=== PATIENT | female | born 1945 | race Caucasian/White ===

== ENCOUNTER 2016-05-09 16:10 | Emergency (ER) | payer MEDICARE, OTHER ==
[2016-05-09] MEDS ORDERED: METOCLOPRAMIDE 5 MG/ML 2 ML VIAL IVP STA (16:33)
[2016-05-09] MEDS ORDERED: SODIUM CHLORIDE 0.9% 1,000 ML IV STA ×2 (16:33)
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
[2016-05-09 17:01] LABS: Basophils % (A) 0 %; CH 31.8; CHCM 34.5; Eosinophils # (A) 0.2 k/uL (0-0.7); Eosinophils % (A) 2 %; HCT 47.4 % (34.0-46.0); HDW 2.75; HGB 15.6 gm/dL (11.4-16.0); Luc # (Auto) 0.08; Luc % (Auto) 1; Lymphocytes # (A) 0.5 k/uL (1.0-4.8); Lymphocytes % (A) 4 %; MCH 30.4 pg (25.0-35.0); MCHC 32.9 g/dL (31.0-37.0); MCV 92.5 fL (80.0-100.0); Mean Platelet Volume 6.8; Monocytes # (A) 0.5 k/uL (0-1.0); Monocytes % (A) 4 %; Neutrophils # (A) 11.4 k/uL (1.3-7.7); Neutrophils % (A) 90 %; RBC 5.12 m/uL (3.80-5.40); RDW 12.3 % (11.5-15.5); WBC 12.7 k/uL (3.8-10.6); WBC (Perox) 13.05
[2016-05-09 17:11] LABS: ALT 22 U/L (9-52); AST 18 U/L (14-36); Alkaline Phosphatase 113 U/L (38-126); Amylase 61 U/L (30-110); Anion Gap 13 mmol/L; Blood Urea Nitrogen 22 mg/dL (7-17); Calcium 9.4 mg/dL (8.4-10.2); Carbon Dioxide 26 mmol/L (22-30); Chloride 105 mmol/L (98-107); Glucose 153 mg/dL (74-99); Non-African American GFR(MDRD) >60 (>60 ml/min/1.73 sqM); Potassium 4.1 mmol/L (3.5-5.1); Sodium 144 mmol/L (137-145); Total Protein 7.6 g/dL (6.3-8.2)
--- NOTE | 2016-05-09 17:12 | XR ---
EXAMINATION TYPE: XR abdomen 2V DATE OF EXAM: 05/09/2016 5:01 PM CLINICAL HISTORY: Abdominal pain TECHNIQUE: Single frontal view of chest is obtained. Supine and upright views of the abdomen are acq uired. COMPARISON: None. FINDINGS: Few air-fluid levels are noted within the right mid abdomen and right lower quadrant in no ndilated bowel. In the remainder of the exam there is a paucity of bowel gas, likely attributable to overlying copious soft tissues. Atheromatous calcifications are noted. No pneumoperitoneum, viscero megaly, or suspicious calcification is identified. The osseous structures are intact. Chest visualiz ation is suboptimal other than cardiomegaly. IMPRESSION: 1. New air-fluid levels in the right mid abdomen right lower quadrant within nondilated bowel. These likely relate to ileus without evidence of obstruction.
[2016-05-09 19:01] VITALS: BP 179/81; PULSE 101; RESP 15; TEMP 97.9
== END 2016-05-09 19:18 | disposition home or self-care (01) ==
LOC: EC 16:10
DX: K52.9 Noninfective gastroenteritis and colitis, unspecified (principal)
CPT/HCPCS: 99284 ×2; 96374 ×2; 36415; 80053; 82150; 83690; 85025; 87324; 74020; J2765

== ENCOUNTER 2023-02-08 11:33 | Observation (INO) | payer MEDICARE ==
[2023-02-08 11:41] LABS: Glucose,Whole Blood 242 mg/dL (70-110)
[2023-02-08] MEDS ORDERED: SODIUM CHLORIDE 0.9% 500 ML 500 ML IV STA (11:57)
[2023-02-08] MEDS ORDERED: ONDANSETRON 4 MG/2 ML VIAL IVP STA (11:57)
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
[2023-02-08 12:39] LABS: Basophils # (A) 0.1 k/uL (0-0.2); Basophils % (A) 0 %; Eosinophils # (A) 0.3 k/uL (0-0.7); Eosinophils % (A) 2 %; HCT 43.3 % (34.0-46.0); HGB 14.3 gm/dL (11.4-16.0); Lymphocytes # (A) 2.3 k/uL (1.0-4.8); Lymphocytes % (A) 18 %; MCH 31.3 pg (25.0-35.0); Mean Platelet Volume 9.3; Monocytes % (A) 7 %; Neutrophils # (A) 9.2 k/uL (1.3-7.7); Neutrophils % (A) 70 %; Platelet Count 284 k/uL (150-450); RBC 4.55 m/uL (3.80-5.40)
[2023-02-08 12:51] LABS: INR 1.3 (<1.2); Partial Thromboplastin Time 26.1 sec (22.0-30.0); Prothrombin Time 14.1 sec (10.0-12.5)
[2023-02-08 12:52] LABS: ALT 21 U/L (4-34); AST 24 U/L (14-36); African American GFR (CKD) 60 (>60 ml/min/1.73 sqM); Albumin 3.8 g/dL (3.5-5.0); Alkaline Phosphatase 157 U/L (38-126); Anion Gap 15 mmol/L; Blood Urea Nitrogen 20 mg/dL (7-17); Calcium 9.1 mg/dL (8.4-10.2); Carbon Dioxide 23 mmol/L (22-30); Chloride 100 mmol/L (98-107); Glucose 263 mg/dL (74-99); Lipase 88 U/L (23-300); Magnesium 1.3 mg/dL (1.6-2.3); Non-African American GFR(CKD) 52 (>60 ml/min/1.73 sqM); Potassium 3.3 mmol/L (3.5-5.1); Sodium 138 mmol/L (137-145); Total Bilirubin 0.7 mg/dL (0.2-1.3); Total Protein 6.8 g/dL (6.3-8.2)
--- NOTE | 2023-02-08 12:54 | XR ---
EXAMINATION TYPE: XR chest 2V DATE OF EXAM: 02/08/2023 COMPARISON: 04/16/2017 INDICATION: Chest pain TECHNIQUE: Frontal and lateral views of the chest are obtained. FINDINGS: The heart size is normal. The pulmonary vasculature is normal. The lungs are clear. IMPRESSION: 1. No acute pulmonary process.
[2023-02-08] MEDS: MAGNESIUM SULFATE-D5W PMX 1 GM in DEXTROSE/WATER 1 100ML.BAG IVPB SCH ×2 (14:16→15:20)
[2023-02-08] MEDS ORDERED: POTASSIUM CHLORIDE ER 20 MEQ TAB.ER PO STA (14:25)
[2023-02-08] MEDS ORDERED: SODIUM CHLORIDE 0.9% 1,000 ML IV ONE (15:05)
[2023-02-09 04:16] VITALS: RESP 16
[2023-02-09 08:53] VITALS: BP 152/77; PULSE 76; TEMP 97.8
[2023-02-09 12:26] LABS: Glucose,Whole Blood 213 mg/dL (70-110)
[2023-02-09] MEDS ORDERED: POTASSIUM CHLORIDE ER 20 MEQ TAB.ER PO SCH (21:00)
[2023-02-09] MEDS ORDERED: MAGNESIUM OXIDE 400 MG TAB PO SCH (21:00)
--- NOTE | 2023-02-13 06:11 | HP ---
HISTORY AND PHYSICAL CHIEF COMPLAINT: Syncope. HISTORY OF PRESENT ILLNESS: This is an admission for this 77-year-old obese white female who has a history of congestive heart failure. She also has atrial fibrillation. She has been doing fairly well with management of her heart failure. She is also diabetic and program has been increased lately to help control her sugars and protect her myocardium. She has been on Trulicity. Apparently, she was in [employer] and suddenly became lightheaded and passed out. She is fairly confident that it is due to the Trulicity. She has been on this for a month or 2 and losing a great deal of weight. She has not told me, but she apparently has frequent nausea and vomiting attributable to the Trulicity. She had no chest pain, focal neurologic signs or symptoms, etc. REVIEW OF SYSTEMS: At present time are all normal. Past medical history, family history, and personal and social histories are unremarkable otherwise. She does not drink or smoke. PHYSICAL EXAMINATION: VITAL SIGNS: Blood pressure 136/80 with a pulse 67 and regular, respirations 16. She is afebrile. GENERAL: She appeared to be well developed, well nourished, and in no acute distress. SKIN: Color is normal and skin is warm and dry. HEENT: Head, ears, eyes, nose, mouth and throat were normal. NECK: Veins not distended. Carotids are normal. CHEST: Clear. CARDIAC: Demonstrated atrial fibrillation with a slow response rate. ABDOMEN: Protuberant, soft, and nontender. There is no visceromegaly or masses. Bowel sounds present. EXTREMITIES: Normal. NEUROLOGICAL: She is intact. IMPRESSION: 1. Syncope secondary to hypoglycemia. 2. Type 2 diabetes mellitus. 3. Cardiomyopathy with congestive heart failure and atrial fibrillation. PLAN: 1. Bedrest. 2. IV fluids. 3. Monitor her neurologic status, blood sugars, and vital signs. MMODL / IJN: [id number] /
--- NOTE | 2023-02-15 03:56 | DS ---
DISCHARGE SUMMARY CHIEF COMPLAINT: Syncope. HISTORY OF PRESENT ILLNESS AND PHYSICAL EXAM: Details of this lady's history and physical can be found in the initial workup. LABORATORY STUDIES: While she was in the hospital, she had laboratory studies, details of which can be found in the laboratory section of her chart. COURSE IN THE HOSPITAL: After admission, she was placed on bedrest, started on intravenous fluids and she had no other issues including syncope, dizziness, arrhythmias, chest pain, etc. It was felt that this event was likely related to hypoglycemia. She is doing well and will be sent home on her usual activity, diet, medication, and not on the [facility]. She will be seen in several days. FINAL DIAGNOSES: 1. Syncope caused by hypoglycemia. 2. Type 2 diabetes mellitus. 3. Congestive heart failure. OPERATIONS: None. CONSULTATION: None. She is improved. RADHA / TOYA: [id number] /
== END 2023-02-09 14:22 | disposition home or self-care (01) ==
LOC: EC 11:33 → 6NMEDSUR 15:05
PROVIDERS: ADMIT Family Medicine; ATTEND Family Medicine
DX: E11.649 Type 2 diabetes mellitus with hypoglycemia without coma (principal); E87.6 Hypokalemia; E83.42 Hypomagnesemia; I42.9 Cardiomyopathy, unspecified; I48.91 Unspecified atrial fibrillation; R11.2 Nausea with vomiting, unspecified; T38.3X5A Adverse effect of insulin and oral hypoglycemic [antidiabetic] drugs, initial encounter; I11.0 Hypertensive heart disease with heart failure; I50.9 Heart failure, unspecified; E78.5 Hyperlipidemia, unspecified; J44.9 Chronic obstructive pulmonary disease, unspecified; I25.2 Old myocardial infarction; G89.29 Other chronic pain; M54.9 Dorsalgia, unspecified; F41.9 Anxiety disorder, unspecified; Z79.82 Long term (current) use of aspirin; Z79.02 Long term (current) use of antithrombotics/antiplatelets; Z79.899 Other long term (current) drug therapy; Z86.12 Personal history of poliomyelitis; Z87.828 Personal history of other (healed) physical injury and trauma; Z90.710 Acquired absence of both cervix and uterus; Z98.42 Cataract extraction status, left eye; Z98.41 Cataract extraction status, right eye; Z86.19 Personal history of other infectious and parasitic diseases; Z95.5 Presence of coronary angioplasty implant and graft; Z98.890 Other specified postprocedural states; Z83.79 Family history of other diseases of the digestive system; Z82.3 Family history of stroke
CPT/HCPCS: 96361; 96365; 96366; 96375; 99285; 36415; 93005; 80053; 83690; 83735; 84484; 85025; 85610; 85730; 71046; G0378 ×2; J2405; J3475

== ENCOUNTER 2023-02-17 12:25 | Observation (INO) | payer MEDICARE ==
[2023-02-17] MEDS ORDERED: SODIUM CHLORIDE 0.9% 500 ML 500 ML IV STA (12:38)
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
[2023-02-17 13:57] LABS: ALT 15 U/L (4-34); AST 28 U/L (14-36); African American GFR (CKD) >90 (>60 ml/min/1.73 sqM); Albumin 3.5 g/dL (3.5-5.0); Alkaline Phosphatase 152 U/L (38-126); Amylase 39 U/L (30-110); Anion Gap 10 mmol/L; Blood Urea Nitrogen 16 mg/dL (7-17); Calcium 8.7 mg/dL (8.4-10.2); Carbon Dioxide 29 mmol/L (22-30); Chloride 97 mmol/L (98-107); Glucose 206 mg/dL (74-99); Lipase 57 U/L (23-300); Magnesium 1.3 mg/dL (1.6-2.3); Non-African American GFR(CKD) 86 (>60 ml/min/1.73 sqM); Sodium 136 mmol/L (137-145); Total Bilirubin 0.9 mg/dL (0.2-1.3); Total Protein 6.5 g/dL (6.3-8.2)
[2023-02-17 13:58] LABS: Potassium 3.7 mmol/L (3.5-5.1)
[2023-02-17 14:05] LABS: Basophils # (A) 0.1 k/uL (0-0.2); Basophils % (A) 1 %; Eosinophils # (A) 0.2 k/uL (0-0.7); Eosinophils % (A) 2 %; HCT 43.9 % (34.0-46.0); HGB 14.8 gm/dL (11.4-16.0); Lymphocytes # (A) 1.7 k/uL (1.0-4.8); Lymphocytes % (A) 17 %; MCH 32.2 pg (25.0-35.0); MCHC 33.7 g/dL (31.0-37.0); MCV 95.7 fL (80.0-100.0); Mean Platelet Volume 9.1; Monocytes # (A) 0.8 k/uL (0-1.0); Monocytes % (A) 7 %; Neutrophils # (A) 7.6 k/uL (1.3-7.7); Neutrophils % (A) 72 %; Platelet Count 258 k/uL (150-450); RBC 4.59 m/uL (3.80-5.40); RDW 11.7 % (11.5-15.5); WBC 10.5 k/uL (3.8-10.6)
[2023-02-17] MEDS: MAGNESIUM SULFATE-D5W PMX 1 GM in DEXTROSE/WATER 1 100ML.BAG IVPB SCH ×2 (15:29→18:38)
[2023-02-17] MEDS ORDERED: SODIUM CHLORIDE 0.9% 1,000 ML IV ONE (17:33)
[2023-02-17 21:13] LABS: Glucose,Whole Blood 237 mg/dL (70-110)
[2023-02-18 06:00] LABS: Glucose,Whole Blood 241 mg/dL (70-110)
[2023-02-18 11:13] LABS: ALT 14 U/L (8-44); AST 15 U/L (13-35); Albumin 3.2 g/dL (3.8-4.9); Albumin/Globulin Ratio 1.28 Ratio (1.60-3.17); Alkaline Phosphatase 158 U/L (41-126); BUN/Creat Ratio 14.62 Ratio (12.00-20.00); Blood Urea Nitrogen 11.7 mg/dL (9.0-27.0); Calcium 8.8 mg/dL (8.7-10.3); Carbon Dioxide 28.1 mmol/L (21.6-31.8); Chloride 99 mmol/L (96-109); Globulin 2.5 g/dL (1.6-3.3); Glucose 249 mg/dL (70-110); Potassium 3.6 mmol/L (3.5-5.5); Sodium 137 mmol/L (135-145); Total Bilirubin 0.5 mg/dL (0.3-1.2); Total Protein 5.7 g/dL (6.2-8.2)
[2023-02-18 12:00] LABS: Glucose,Whole Blood 240 mg/dL (70-110)
[2023-02-18] MEDS ORDERED: DEXTROSE 50% SYRINGE 50 ML IVP PRN ×2 (12:27)
[2023-02-18] MEDS: INSULIN ASPART (NovoLOG) 100 UNIT/ML VIAL SQ SCH ×3 (12:32→21:32)
[2023-02-18] MEDS ORDERED: ALPRAZolam 0.25 MG TAB PO PRN (13:25)
[2023-02-18 17:38] LABS: Glucose,Whole Blood 196 mg/dL (70-110)
[2023-02-18] MEDS: carvediloL 6.25 MG TAB PO SCH (17:54)
--- NOTE | 2023-02-18 20:35 | HP ---
HISTORY AND PHYSICAL CHIEF COMPLAINT: Weakness, dizziness, and intractable nausea and vomiting with hypokalemia and hypomagnesemia. HISTORY OF PRESENT ILLNESS: This is another recent admission for this 77-year-old female. She was in the hospital recently after she passed out at [employer]dhism presumably due to hypoglycemia. She had been having some nausea and vomiting with Trulicity, which she had been on for some time. She never reported this. She went home off Trulicity and it was thought that she would do well, but she still had some nausea, and occasional vomiting and came back into the emergency room and she was feeling weak and lightheaded. In the emergency room, she was dehydrated and potassium and magnesium were low. She denies any chest pain, abdominal pain, hematemesis, melena, hematochezia, jaundice, etc. Past medical history, family history, personal and social histories are all otherwise unremarkable and unchanged. PHYSICAL EXAMINATION: VITAL SIGNS: Normal. GENERAL: She is in atrial fibrillation. HEAD, EARS, EYES, NOSE, MOUTH AND THROAT: Normal. NECK: Supple. CHEST: Clear. CARDIAC: Demonstrates atrial fibrillation. ABDOMEN: Protuberant, soft and nontender without any visceromegaly or masses. Bowel sounds are present. EXTREMITIES: Normal. IMPRESSION: She is admitted to the hospital with diagnoses of: 1. Intractable nausea and vomiting. 2. Dizziness. 3. Type 2 diabetes mellitus. 4. Atrial fibrillation. 5. Congestive heart failure. PLAN: 1. Bedrest. 2. IV fluids. 3. Antiemetics. 4. Look for etiology of her nausea and vomiting. MMODL / IJN: [id number] /
[2023-02-18] MEDS: MAGNESIUM OXIDE 400 MG TAB PO SCH (21:09)
[2023-02-18] MEDS: RIVAROXABAN 20 MG TAB PO SCH (21:09)
[2023-02-18 21:15] LABS: Glucose,Whole Blood 179 mg/dL (70-110)
--- NOTE | 2023-02-18 23:01 | PN ---
PROGRESS NOTE DATE OF SERVICE: 02/18/2023 CHIEF COMPLAINT: Nausea, vomiting, and dizziness. HISTORY OF PRESENT ILLNESS: This lady is feeling a little bit better. She is not nauseated. She denies chest pain or shortness of breath. PHYSICAL EXAMINATION: VITAL SIGNS: Normal. GENERAL: She is in atrial fibrillation. CHEST: Clear. CARDIAC: Normal. ABDOMEN: Soft, nontender. IMPRESSION: Dizziness, weakness, nausea, and congestive heart failure. PLAN: 1. IV fluids. 2. Continue to monitor her nausea and dizziness. She will be discharged once she is stable. MMODL / IJN: [id number] /
[2023-02-19 06:08] LABS: Glucose,Whole Blood 220 mg/dL (70-110)
[2023-02-19] MEDS: INSULIN ASPART (NovoLOG) 100 UNIT/ML VIAL SQ SCH ×4 (06:16→20:45)
[2023-02-19] MEDS: carvediloL 6.25 MG TAB PO SCH ×2 (08:11→17:59)
[2023-02-19] MEDS: MAGNESIUM OXIDE 400 MG TAB PO SCH ×2 (08:11→20:45)
[2023-02-19 11:55] LABS: Glucose,Whole Blood 252 mg/dL (70-110)
[2023-02-19] MEDS: INSULIN DETEMIR (LEVEMIR) 100 UNIT/ML SYR SQ SCH (12:36)
[2023-02-19 12:57] LABS: Basophils # (A) 0.1 k/uL (0-0.2); Basophils % (A) 1 %; Eosinophils # (A) 0.3 k/uL (0-0.7); Eosinophils % (A) 3 %; HCT 40.8 % (34.0-46.0); HGB 13.6 gm/dL (11.4-16.0); Lymphocytes # (A) 2.2 k/uL (1.0-4.8); Lymphocytes % (A) 23 %; MCH 32.2 pg (25.0-35.0); MCHC 33.4 g/dL (31.0-37.0); MCV 96.6 fL (80.0-100.0); Mean Platelet Volume 8.6; Monocytes # (A) 0.8 k/uL (0-1.0); Monocytes % (A) 9 %; Neutrophils # (A) 5.7 k/uL (1.3-7.7); Neutrophils % (A) 61 %; Platelet Count 257 k/uL (150-450); RBC 4.22 m/uL (3.80-5.40); RDW 11.9 % (11.5-15.5); WBC 9.4 k/uL (3.8-10.6)
[2023-02-19 13:13] LABS: ALT 17 U/L (4-34); AST 23 U/L (14-36); African American GFR (CKD) >90 (>60 ml/min/1.73 sqM); Albumin 3.1 g/dL (3.5-5.0); Albumin/Globulin Ratio 1.1; Alkaline Phosphatase 171 U/L (38-126); Anion Gap 9 mmol/L; Blood Urea Nitrogen 7 mg/dL (7-17); Calcium 8.7 mg/dL (8.4-10.2); Carbon Dioxide 31 mmol/L (22-30); Chloride 96 mmol/L (98-107); Globulin 2.8 g/dL; Glucose 246 mg/dL (74-99); Non-African American GFR(CKD) 88 (>60 ml/min/1.73 sqM); Potassium 3.6 mmol/L (3.5-5.1); Sodium 136 mmol/L (137-145); Total Bilirubin 0.5 mg/dL (0.2-1.3); Total Protein 5.9 g/dL (6.3-8.2)
[2023-02-19 17:40] LABS: Glucose,Whole Blood 178 mg/dL (70-110)
[2023-02-19 19:48] LABS: Glucose,Whole Blood 217 mg/dL (70-110)
[2023-02-19] MEDS: RIVAROXABAN 20 MG TAB PO SCH (20:45)
--- NOTE | 2023-02-19 23:52 | PN ---
PROGRESS NOTE DATE OF SERVICE: 02/19/2023 CHIEF COMPLAINT: Weakness, malaise, nausea, and anorexia. HISTORY OF PRESENT ILLNESS: This lady is doing a bit better. She still does not feel normal. She feels that the Trulicity that she was on may still be causing her to have an upset stomach. PHYSICAL EXAMINATION: VITAL SIGNS: Normal. GENERAL: Color is good. CHEST: Clear. CARDIAC: Normal. ABDOMEN: Soft and nontender. IMPRESSION: Nausea, anorexia, vomiting, diabetes, hypokalemia, and hypomagnesemia. PLAN: Continue with IV fluids and slowly increase activity and keep her in the hospital another day. MMODL / IJN: [id number] /
[2023-02-20 06:06] LABS: Glucose,Whole Blood 200 mg/dL (70-110)
[2023-02-20] MEDS: INSULIN ASPART (NovoLOG) 100 UNIT/ML VIAL SQ SCH ×4 (06:59→21:27)
[2023-02-20] MEDS: carvediloL 6.25 MG TAB PO SCH ×2 (08:23→18:04)
[2023-02-20] MEDS: MAGNESIUM OXIDE 400 MG TAB PO SCH ×2 (10:11→20:13)
[2023-02-20 12:05] LABS: Glucose,Whole Blood 223 mg/dL (70-110)
[2023-02-20 13:09] VITALS: BMI 39.4
[2023-02-20] MEDS: INSULIN DETEMIR (LEVEMIR) 100 UNIT/ML SYR SQ SCH (13:26)
[2023-02-20 17:31] LABS: Glucose,Whole Blood 162 mg/dL (70-110)
[2023-02-20] MEDS: RIVAROXABAN 20 MG TAB PO SCH (20:13)
[2023-02-20 20:52] LABS: Glucose,Whole Blood 158 mg/dL (70-110)
--- NOTE | 2023-02-21 05:14 | PN ---
PROGRESS NOTE DATE OF SERVICE: 02/19/2023 CHIEF COMPLAINT: Nausea, vomiting, malaise, and anorexia. HISTORY OF PRESENT ILLNESS: This lady still isn't feeling well. She is not vomiting. She does not have any pain. Blood sugars are still slightly elevated, but not in the toxic range. PHYSICAL EXAMINATION: CHEST: Clear. CARDIAC: Normal. ABDOMEN: Soft, nontender. IMPRESSION: 1. Nausea and vomiting, etiology unknown. 2. Type 2 diabetes mellitus. 3. Obesity. 4. Congestive heart failure. PLAN: Continue to monitor her blood sugars and await to see if her nausea continues. There is no apparent etiology at this time. She has been off Trulicity for several weeks now. MMODL / IJN: [id number] /
--- NOTE | 2023-02-21 05:25 | PN ---
PROGRESS NOTE DATE OF SERVICE: 02/20/2023 CHIEF COMPLAINT: Nausea and anorexia. HISTORY OF PRESENT ILLNESS: This lady is not feeling much better. She is not eating. She denies any pain. PHYSICAL EXAMINATION: ABDOMEN: Soft and nontender without masses. CHEST: Clear. CARDIAC: Normal. IMPRESSION: Nausea and anorexia with poorly controlled diabetes and heart failure. PLAN: Continue to monitor for another 24 hours. If she improves enough that she is able to eat, she could be discharged and her workup could be continued as an outpatient. MMODL / IJN: [id number] /
[2023-02-21 05:52] LABS: Glucose,Whole Blood 214 mg/dL (70-110)
[2023-02-21] MEDS: carvediloL 6.25 MG TAB PO SCH ×2 (06:03→18:07)
[2023-02-21] MEDS: INSULIN ASPART (NovoLOG) 100 UNIT/ML VIAL SQ SCH ×4 (06:03→20:37)
[2023-02-21] MEDS: MAGNESIUM OXIDE 400 MG TAB PO SCH ×2 (08:49→19:48)
[2023-02-21 09:25] LABS: Basophils # (A) 0.07 X 10*3/uL (0.00-0.10); Basophils % (A) 0.7 %; Eosinophils # (A) 0.46 X 10*3/uL (0.04-0.35); Eosinophils % (A) 4.5 %; Lymphocytes # (A) 2.15 X 10*3/uL (0.90-5.00); Lymphocytes % (A) 21.1 %; MCH 30.3 pg (27.0-32.0); MCHC 31.7 g/dL (32.0-37.0); MCV 95.6 FL (80.0-97.0); Mean Platelet Volume 11.5 FL (9.5-12.2); Monocytes # (A) 1.38 X 10*3/uL (0.20-1.00); Monocytes % (A) 13.5 %; NRBC Per 100 WBC 0 X 10*3/uL (0.00-0.01); Neutrophils # (A) 6.07 X 10*3/uL (1.80-7.70); Neutrophils % (A) 59.5 %; Platelet Count 272 X 10*3/uL (140-440); RBC 4.29 X 10*6/uL (4.10-5.20); RDW 12.3 % (11.5-14.5)
[2023-02-21] MEDS: INSULIN DETEMIR (LEVEMIR) 100 UNIT/ML SYR SQ SCH (10:55)
[2023-02-21 11:50] LABS: ALT 13 U/L (8-44); AST 14 U/L (13-35); Albumin 3.2 g/dL (3.8-4.9); Albumin/Globulin Ratio 1.33 Ratio (1.60-3.17); Alkaline Phosphatase 162 U/L (41-126); BUN/Creat Ratio 8.12 Ratio (12.00-20.00); Blood Urea Nitrogen 6.5 mg/dL (9.0-27.0); Calcium 9.1 mg/dL (8.7-10.3); Carbon Dioxide 27.8 mmol/L (21.6-31.8); Chloride 100 mmol/L (96-109); Globulin 2.4 g/dL (1.6-3.3); Glucose 179 mg/dL (70-110); Potassium 4.8 mmol/L (3.5-5.5); Sodium 138 mmol/L (135-145); Total Bilirubin 0.4 mg/dL (0.3-1.2); Total Protein 5.6 g/dL (6.2-8.2)
[2023-02-21 12:22] LABS: Glucose,Whole Blood 213 mg/dL (70-110)
[2023-02-21] MEDS: ONDANSETRON 4 MG TAB PO PRN (13:18)
[2023-02-21 17:32] LABS: Glucose,Whole Blood 135 mg/dL (70-110)
[2023-02-21] MEDS: RIVAROXABAN 20 MG TAB PO SCH (19:48)
[2023-02-21 20:34] LABS: Glucose,Whole Blood 206 mg/dL (70-110)
[2023-02-22] MEDS: ONDANSETRON 4 MG TAB PO PRN (01:33)
[2023-02-22 05:35] LABS: Glucose,Whole Blood 168 mg/dL (70-110)
[2023-02-22] MEDS: carvediloL 6.25 MG TAB PO SCH ×2 (05:40→17:56)
[2023-02-22] MEDS: INSULIN ASPART (NovoLOG) 100 UNIT/ML VIAL SQ SCH ×4 (05:41→21:16)
[2023-02-22] MEDS: MAGNESIUM OXIDE 400 MG TAB PO SCH ×2 (08:12→20:05)
[2023-02-22] MEDS: INSULIN DETEMIR (LEVEMIR) 100 UNIT/ML SYR SQ SCH (11:44)
[2023-02-22 11:45] LABS: Glucose,Whole Blood 218 mg/dL (70-110)
[2023-02-22] MEDS: RIVAROXABAN 20 MG TAB PO SCH (20:05)
[2023-02-22 21:06] LABS: Glucose,Whole Blood 236 mg/dL (70-110)
[2023-02-23 06:04] LABS: Glucose,Whole Blood 171 mg/dL (70-110)
[2023-02-23] MEDS: carvediloL 6.25 MG TAB PO SCH (06:21)
[2023-02-23] MEDS: INSULIN ASPART (NovoLOG) 100 UNIT/ML VIAL SQ SCH (06:21)
[2023-02-23 08:03] VITALS: BP 119/69; PULSE 55; RESP 14; TEMP 98.2
[2023-02-23] MEDS: MAGNESIUM OXIDE 400 MG TAB PO SCH (08:35)
--- NOTE | 2023-02-23 22:05 | DS ---
DISCHARGE SUMMARY CHIEF COMPLAINT: Intractable nausea and vomiting with hypokalemia and hypomagnesemia. HISTORY OF PRESENT ILLNESS AND PHYSICAL EXAM: Details of this lady's history and physical can be found in the initial workup. COURSE IN THE HOSPITAL: After admission, she was placed on bedrest, started on intravenous fluids and antiemetics. She continued to have episodes of nausea and vomiting for several more days. Finally, her nausea seemed to be getting a little bit better even though it was not completely gone. She was anxious to go home and she will be discharged and followed up in several days. FINAL DIAGNOSES: 1. Intractable nausea and vomiting, etiology unknown. 2. Hypomagnesemia. 3. Hypokalemia. 4. Insulin-dependent diabetes mellitus. 5. Congestive heart failure. OPERATIONS: None. CONSULTATIONS: None. She is improved. MMFERNANDO / TOYA: [id number] /
--- NOTE | 2023-02-24 05:34 | PN ---
PROGRESS NOTE DATE OF SERVICE: 02/22/2023 CHIEF COMPLAINT: Intractable nausea and vomiting. HISTORY OF PRESENT ILLNESS: This lady is doing a little better, but she is still somewhat nauseated occasionally and she vomited during the night. PHYSICAL EXAMINATION: CHEST: Clear. CARDIAC: Normal. ABDOMEN: Soft, nontender. IMPRESSION: 1. Intractable nausea and vomiting, etiology unknown. 2. Congestive heart failure. 3. Diabetes mellitus. PLAN: Try to advance her diet and activity and see if her nausea starts to disappear. Would be preferred she would not be vomiting before she is discharged. MMODL / IJN: [id number] /
--- NOTE | 2023-02-24 05:50 | PN ---
PROGRESS NOTE DATE OF SERVICE: 02/21/2023 CHIEF COMPLAINT: Intractable nausea with vomiting. HISTORY OF PRESENT ILLNESS: This lady is doing fairly well, but she is still nauseated and occasionally throws up small amount of gastric contents. There is no coffee-grounds emesis and she has no pain. PHYSICAL EXAMINATION: CHEST: Clear. CARDIAC: Normal. ABDOMEN: Soft, nontender, bowel sounds are present. IMPRESSION: 1. Intractable nausea and vomiting, etiology unknown. 2. Diabetes. 3. CHF. PLAN: Try to advance diet and activity. Also look to see if any of her medications could be making her nauseated. MMODL / IJN: [id number] /
== END 2023-02-23 10:51 | disposition home or self-care (01) ==
LOC: EC 12:25 → 6NMEDSUR 17:40
PROVIDERS: ADMIT Family Medicine; ATTEND Family Medicine
DX: R11.2 Nausea with vomiting, unspecified (principal); R11.10 Vomiting, unspecified; E87.6 Hypokalemia; E83.42 Hypomagnesemia; E11.9 Type 2 diabetes mellitus without complications; R50.9 Fever, unspecified; I11.0 Hypertensive heart disease with heart failure; I50.9 Heart failure, unspecified; E86.0 Dehydration; I48.91 Unspecified atrial fibrillation; R63.0 Anorexia; E66.9 Obesity, unspecified; Z68.39 Body mass index [BMI] 39.0-39.9, adult; E78.5 Hyperlipidemia, unspecified; I25.2 Old myocardial infarction; J44.9 Chronic obstructive pulmonary disease, unspecified; G89.29 Other chronic pain; M54.9 Dorsalgia, unspecified; Z86.12 Personal history of poliomyelitis; F41.9 Anxiety disorder, unspecified; Z88.8 Allergy status to other drugs, medicaments and biological substances; Z79.891 Long term (current) use of opiate analgesic; Z79.4 Long term (current) use of insulin; Z79.899 Other long term (current) drug therapy; Z79.01 Long term (current) use of anticoagulants; Z79.84 Long term (current) use of oral hypoglycemic drugs; Z82.3 Family history of stroke; Z84.89 Family history of other specified conditions
CPT/HCPCS: 96361 ×2; 96365; 96366; 99285; 36415; 93005; 80053 ×4; 82150; 83605; 83690; 83735 ×2; 84132; 84484; 85025 ×3; 83036; G0378 ×7; J3475

== ENCOUNTER 2023-03-03 19:55 | Inpatient (IN) | payer MEDICARE ==
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
[2023-03-03] MEDS ORDERED: SODIUM CHLORIDE 0.9% 1,000 ML IV STA (20:21)
[2023-03-03] MEDS ORDERED: PANTOPRAZOLE 40 MG/10 ML VIAL IVP STA (20:21)
[2023-03-03] MEDS ORDERED: ONDANSETRON 4 MG/2 ML VIAL IVP STA (20:21)
[2023-03-03] MEDS ORDERED: MORPHINE SULFATE 4 MG/ML SYRINGE IVP STA (20:21)
[2023-03-03 20:56] LABS: Basophils # (A) 0.1 k/uL (0-0.2); Basophils % (A) 1 %; Eosinophils # (A) 0.4 k/uL (0-0.7); Eosinophils % (A) 3 %; HCT 45.6 % (34.0-46.0); HGB 14.9 gm/dL (11.4-16.0); Lymphocytes # (A) 1.8 k/uL (1.0-4.8); Lymphocytes % (A) 14 %; MCH 31.4 pg (25.0-35.0); MCHC 32.7 g/dL (31.0-37.0); MCV 95.8 fL (80.0-100.0); Mean Platelet Volume 8.7; Monocytes % (A) 7 %; Neutrophils # (A) 9.5 k/uL (1.3-7.7); Neutrophils % (A) 73 %; Platelet Count 315 k/uL (150-450); RBC 4.76 m/uL (3.80-5.40); RDW 12.1 % (11.5-15.5)
[2023-03-03 21:12] LABS: ALT 17 U/L (4-34); African American GFR (CKD) 59 (>60 ml/min/1.73 sqM); Amylase 42 U/L (30-110); Anion Gap 12 mmol/L; Blood Urea Nitrogen 30 mg/dL (7-17); Calcium 8.5 mg/dL (8.4-10.2); Carbon Dioxide 23 mmol/L (22-30); Chloride 96 mmol/L (98-107); Glucose 245 mg/dL (74-99); Lipase 65 U/L (23-300); Non-African American GFR(CKD) 51 (>60 ml/min/1.73 sqM); Sodium 131 mmol/L (137-145); Total Bilirubin 0.8 mg/dL (0.2-1.3); Total Protein 5.8 g/dL (6.3-8.2)
[2023-03-03 21:15] LABS: AST 26 U/L (14-36); Alkaline Phosphatase 185 U/L (38-126); Potassium 4.1 mmol/L (3.5-5.1)
[2023-03-03] MEDS ORDERED: ONDANSETRON 4 MG/2 ML VIAL IVP PRN (23:46)
[2023-03-03] MEDS ORDERED: NALOXONE 0.4 MG/ML 1 ML VIAL IV PRN (23:46)
[2023-03-04] MEDS ORDERED: PROCHLORPERAZINE INJ 10 MG/2 ML VIAL IVP STA (00:12)
[2023-03-04] MEDS: SODIUM CHLORIDE 0.9% 1,000 ML IV SCH ×4 (00:18→23:08)
--- NOTE | 2023-03-04 00:23 | CT ---
EXAM: CT Abdomen and Pelvis With Intravenous Contrast CLINICAL HISTORY: ITS.REASON CT Reason: nvd TECHNIQUE: Axial computed tomography images of the abdomen and pelvis with intravenous contrast. CTDI is 33.13 mGy and DLP is 1752.2 mGy-cm. This CT exam was performed using one or more of the following dose reduction techniques: automated exposure control, adjustment of the mA and/or kV according to patient size, and/or use of iterative reconstruction technique. COMPARISON: No relevant prior studies available. FINDINGS: Lung bases: Nodule in the medial aspect of the right upper lobe measures 1.7 x 1.5 cm. Follow-up as per Fleischner Society guidelines. No consolidation. Heart: Cardiomegaly. ABDOMEN: Liver: Hepatic cirrhosis. Low-attenuation lesion in segment 6 measures 2.2 x 2.1 cm. Additional vague low-attenuation lesions are present in the left hepatic lobe. Abdominal MRI recommended given the underlying cirrhosis. Gallbladder and bile ducts: Unremarkable. No calcified stones. No ductal dilation. Pancreas: Atrophy the pancreas. Suspected postsurgical changes in the region of the pancreatic tail. Correlate with surgical history. No ductal dilation. Spleen: Unremarkable. No splenomegaly. Adrenals: Unremarkable. No mass. Kidneys and ureters: Unremarkable. No solid mass. No hydronephrosis. Stomach and bowel: Diverticulosis, without acute diverticulitis. No small bowel obstruction. No free intraperitoneal air. PELVIS: Appendix: No findings to suggest acute appendicitis. Bladder: Unremarkable. No mass. Reproductive: Hysterectomy. ABDOMEN and PELVIS: Intraperitoneal space: Large volume abdominal and pelvic ascites. No free air. Bones/joints: Degenerative changes of the spine. No acute fracture. No dislocation. Soft tissues: Unremarkable. Vasculature: Atherosclerotic changes of the aorta. No abdominal aortic aneurysm. Lymph nodes: Unremarkable. No enlarged lymph nodes. IMPRESSION: 1. Hepatic cirrhosis. Low-attenuation lesion in segment 6 measures 2.2 x 2.1 cm. Additional vague low-attenuation lesions are present in the left hepatic lobe. Abdominal MRI recommended given the underlying cirrhosis. 2. Large volume abdominal and pelvic ascites. 3. Nodule in the medial aspect of the right upper lobe measures 1.7 x 1. 5 cm. Follow-up as per Fleischner Society guidelines. 4. Hysterectomy. 5. Atrophy the pancreas. Suspected postsurgical changes in the region of the pancreatic tail. Correlate with surgical history.
[2023-03-04 03:13] LABS: Basophils # (A) 0.1 k/uL (0-0.2); Basophils % (A) 1 %; Eosinophils # (A) 0.3 k/uL (0-0.7); Eosinophils % (A) 2 %; HGB 14.8 gm/dL (11.4-16.0); Lymphocytes # (A) 1.9 k/uL (1.0-4.8); Lymphocytes % (A) 15 %; MCHC 32.2 g/dL (31.0-37.0); MCV 96.4 fL (80.0-100.0); Mean Platelet Volume 8.9; Monocytes # (A) 1.1 k/uL (0-1.0); Monocytes % (A) 8 %; Neutrophils # (A) 9.3 k/uL (1.3-7.7); Neutrophils % (A) 72 %; Platelet Count 304 k/uL (150-450); RBC 4.77 m/uL (3.80-5.40); RDW 12.2 % (11.5-15.5); WBC 12.9 k/uL (3.8-10.6)
[2023-03-04 03:14] LABS: ALT 16 U/L (4-34); AST 22 U/L (14-36); African American GFR (CKD) 55 (>60 ml/min/1.73 sqM); Albumin 2.8 g/dL (3.5-5.0); Alkaline Phosphatase 183 U/L (38-126); Anion Gap 11 mmol/L; Blood Urea Nitrogen 28 mg/dL (7-17); Calcium 8.4 mg/dL (8.4-10.2); Carbon Dioxide 23 mmol/L (22-30); Chloride 99 mmol/L (98-107); Glucose 240 mg/dL (74-99); Non-African American GFR(CKD) 48 (>60 ml/min/1.73 sqM); Phosphorus 3.6 mg/dL (2.5-4.5); Potassium 3.8 mmol/L (3.5-5.1); Sodium 133 mmol/L (137-145); Total Bilirubin 0.7 mg/dL (0.2-1.3); Total Protein 5.5 g/dL (6.3-8.2)
[2023-03-04] MEDS: PANTOPRAZOLE 40 MG/10 ML VIAL IV SCH (09:08)
[2023-03-04] MEDS: MORPHINE SULFATE 4 MG/ML SYRINGE IV PRN ×3 (13:15→23:02)
[2023-03-04 17:37] LABS: Glucose,Whole Blood 174 mg/dL (70-110)
[2023-03-04 20:12] LABS: Glucose,Whole Blood 187 mg/dL (70-110)
--- NOTE | 2023-03-05 01:22 | PN ---
PROGRESS NOTE DATE OF SERVICE: 03/04/2023 CHIEF COMPLAINT: Intractable nausea and vomiting. HISTORY OF PRESENT ILLNESS: This lady has vomited since last night, but she has been having difficulty with this and she left the hospital a couple of weeks ago for the same symptoms. PHYSICAL EXAMINATION: HEAD, EARS, EYES, NOSE, MOUTH AND THROAT: Normal. CHEST: Clear. CARDIAC: Normal. ABDOMEN: Soft, nontender without visceromegaly or masses. IMPRESSION: Nausea and vomiting, intractable, etiology unknown. PLAN: 1. Bed rest. 2. IV fluids. 3. Attempt to figure out the cause of her vomiting. MMODL / IJN: [id number] /
--- NOTE | 2023-03-05 02:40 | HP ---
HISTORY AND PHYSICAL She is in room 15 in the emergency room. CHIEF COMPLAINT: Intractable nausea and vomiting. HISTORY OF PRESENT ILLNESS: This is another recent admission for this 77-year-old obese white female with a history of congestive heart failure. She was just in the hospital after she had a syncopal event at her mandaen which we thought was related to hypoglycemia. She has been having nausea and vomiting after she was put on a GLP-1. She was discharged without that drug and went home and has still been having nausea and vomiting. She has no abdominal pain, dysphagia, hematemesis, melena, hematochezia, diarrhea, etc. Past medical and family history and social histories are unremarkable otherwise. MEDICATIONS: 1. . 2. Metformin. 3. Lantus. 4. Lisinopril. 5. Carvedilol. 6. Lasix. 7. Pravastatin. 8. Aldactone. 9. Xanax. SOCIAL HISTORY: She does not smoke and she does not drink. PHYSICAL EXAMINATION: VITAL SIGNS: Blood pressure is 130/68, with a pulse 76, respirations of 36, and she is afebrile. GENERAL: She appeared to be slightly pale, dehydrated. HEENT: Head, ears, eyes, nose, mouth and throat were normal. CHEST: Clear. CARDIAC: Demonstrated her atrial fibrillation. ABDOMEN: Soft and nontender without any masses or visceromegaly. EXTREMITIES: Normal. NEUROLOGIC: Intact. DIAGNOSES: She is admitted to the hospital with diagnoses: 1. Intractable nausea and vomiting, etiology unknown. 2. Type 2 insulin-dependent diabetes mellitus. 3. Congestive heart failure. 4. Obesity. PLAN: 1. Bed rest. 2. Look for etiology of her nausea including stopping or changing many of her medications. MMODL / IJN: [id number] /
[2023-03-05] MEDS: MORPHINE SULFATE 4 MG/ML SYRINGE IV PRN ×3 (04:04→19:52)
[2023-03-05 06:00] LABS: Glucose,Whole Blood 200 mg/dL (70-110)
[2023-03-05] MEDS: SODIUM CHLORIDE 0.9% 1,000 ML IV SCH ×2 (08:32→15:24)
[2023-03-05] MEDS: PANTOPRAZOLE 40 MG/10 ML VIAL IV SCH (08:32)
[2023-03-05 11:14] LABS: Glucose,Whole Blood 180 mg/dL (70-110)
[2023-03-05 16:23] LABS: Glucose,Whole Blood 182 mg/dL (70-110)
[2023-03-05 20:22] LABS: Glucose,Whole Blood 189 mg/dL (70-110)
[2023-03-06] MEDS: SODIUM CHLORIDE 0.9% 1,000 ML IV SCH ×4 (00:26→23:51)
[2023-03-06] MEDS: MORPHINE SULFATE 4 MG/ML SYRINGE IV PRN ×5 (01:38→23:52)
--- NOTE | 2023-03-06 04:47 | PN ---
PROGRESS NOTE DATE OF SERVICE: 03/05/2023 CHIEF COMPLAINT: Intractable nausea and vomiting. HISTORY OF PRESENT ILLNESS: This lady is still nauseated, but she has not vomited. PHYSICAL EXAMINATION: CHEST: Clear. CARDIAC: Demonstrates her atrial fibrillation. ABDOMEN: Soft, nontender without masses. IMPRESSION: 1. Intractable nausea and vomiting. 2. Type 2 diabetes. 3. Congestive heart failure. PLAN: 1. Repeat laboratory studies. 2. CT suggests study and CA-135 and CA-19-9 will be ordered. MMODL / IJN: [id number] /
[2023-03-06 05:55] LABS: Glucose,Whole Blood 171 mg/dL (70-110)
[2023-03-06] MEDS: PANTOPRAZOLE 40 MG/10 ML VIAL IV SCH (08:16)
[2023-03-06 11:20] LABS: Glucose,Whole Blood 204 mg/dL (70-110)
[2023-03-06 11:34] VITALS: BMI 37.1
[2023-03-06 16:16] LABS: Glucose,Whole Blood 223 mg/dL (70-110)
[2023-03-06 18:14] LABS: INR 1.4 (<1.2); Prothrombin Time 14.4 sec (10.0-12.5)
[2023-03-06 20:40] LABS: Glucose,Whole Blood 202 mg/dL (70-110)
[2023-03-07 02:51] LABS: Alpha Fetoprotein, Tumor Mkr <3.00 ng/mL (0.00-7.90); Carcinoembryonic Antigen 5.1 ng/mL (0.0-4.9)
[2023-03-07] MEDS: SODIUM CHLORIDE 0.9% 1,000 ML IV SCH ×4 (03:27→23:07)
[2023-03-07] MEDS: MORPHINE SULFATE 4 MG/ML SYRINGE IV PRN ×5 (03:27→23:06)
[2023-03-07 05:38] LABS: Glucose,Whole Blood 190 mg/dL (70-110)
[2023-03-07] MEDS: PANTOPRAZOLE 40 MG/10 ML VIAL IV SCH (09:16)
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
[2023-03-07 11:46] LABS: Glucose,Whole Blood 186 mg/dL (70-110)
[2023-03-07 16:56] LABS: Glucose,Whole Blood 175 mg/dL (70-110)
[2023-03-07 19:28] LABS: Glucose,Whole Blood 189 mg/dL (70-110)
--- NOTE | 2023-03-08 03:17 | PN ---
PROGRESS NOTE DATE OF SERVICE: 03/06/2023 CHIEF COMPLAINT: Persistent abdominal pain and nausea. HISTORY OF PRESENT ILLNESS: This lady is still not doing well. She still has some vague abdominal discomfort and nausea. We will increase her IV and try to advance her diet. She wants to be DNR. PHYSICAL EXAMINATION: CHEST: Clear. CARDIAC: Demonstrated atrial fibrillation. ABDOMEN: Protuberant. She has some mild generalized tenderness. Bowel sounds are present. IMPRESSION: 1. Intractable nausea and vomiting. 2. Abdominal discomfort. PLAN: 1. Await further studies. 2. DNR. MMODL / IJN: [id number] /
[2023-03-08] MEDS: MORPHINE SULFATE 4 MG/ML SYRINGE IV PRN ×5 (04:06→22:54)
[2023-03-08 06:10] LABS: Glucose,Whole Blood 181 mg/dL (70-110)
[2023-03-08 06:11] LABS: African American GFR (CKD) >90 (>60 ml/min/1.73 sqM); Anion Gap 10 mmol/L; Blood Urea Nitrogen 13 mg/dL (7-17); Carbon Dioxide 17 mmol/L (22-30); Chloride 107 mmol/L (98-107); Glucose 196 mg/dL (74-99); Non-African American GFR(CKD) 89 (>60 ml/min/1.73 sqM); Potassium 4.3 mmol/L (3.5-5.1); Sodium 134 mmol/L (137-145)
[2023-03-08] MEDS: PANTOPRAZOLE 40 MG/10 ML VIAL IV SCH (08:11)
[2023-03-08] MEDS ORDERED: RX INFO: IV CONTRAST WAS GIVEN 1 EACH MISC MISCELLANE PRN (08:30)
--- NOTE | 2023-03-08 08:32 | PN ---
PROGRESS NOTE DATE OF SERVICE: 03/07/2023 CHIEF COMPLAINT: Abdominal pain, anorexia, nausea, and heart failure. HISTORY OF PRESENT ILLNESS: This lady's CA-19-9 and CA-135 come back quite high. She states that she had a hysterectomy and she is not sure if her ovaries were left in. This picture, however, would be very concerning for carcinoma of the pancreas. PHYSICAL EXAMINATION: ABDOMEN: She still has abdominal distention and some tenderness. CHEST: Clear. CARDIAC: Unchanged. IMPRESSION: Anorexia, vomiting, abdominal pain, and elevated cancer markers. PLAN: She has been seen by Oncology and has planned to undergo ultrasound-guided paracentesis for diagnostic purposes. MMODL / IJN: [id number] /
[2023-03-08 11:40] LABS: Glucose,Whole Blood 183 mg/dL (70-110)
[2023-03-08] MEDS: SODIUM CHLORIDE 0.9% 1,000 ML IV SCH ×2 (12:36→21:08)
--- NOTE | 2023-03-08 13:44 | CT ---
EXAMINATION TYPE: CT chest w con CT DLP: 530.5 mGycm, Automated exposure control for dose reduction was used. DATE OF EXAM: 03/08/2023 9:08 AM COMPARISON: Chest x-ray 02/08/2023 , CT abdomen pelvis 03/03/2023. CLINICAL INDICATION:Female, 77 years old with history of concern for abd malignancy, staging; PHH, co ncern for abd malignancy, staging TECHNIQUE: Multiple axial images were obtained through the chest. Sagittal and coronal reformats were created for review. Contrast used:100 mL of Isovue 300 with IV Contrast (None if empty) Oral contrast used: (None if empty) FINDINGS: LOWER NECK: No significant findings. HEART: Moderately enlarged with grossly preserved enhancement of the chambers. Moderate coronary alex ry calcifications and/or stents. No effusion. VASCULATURE: Mild calcification of the aorta including the aortic valve without evidence of dissecti on flap or aneurysm. Grossly preserved enhancement of the pulmonary arteries in the limits of the ex am. Pulmonary trunk is mildly enlarged at 3.3 cm.. MEDIASTINUM: No gross evidence of adenopathy. LUNGS/ PLEURA: Small left pleural effusion. A 5.7 mm nodule in the left lung apex image 11 series 205 , subpleural 3.5 mm nodule in the left upper lobe image 13, and a medial subpleural 5 mm nodule image 14. Superior segment left lower lobe nodule 4 mm on image 17. Mild atelectasis towards the left lung base could obscure additional nodules. There is a 3 mm nodule in the anterior right upper lobe image 19. A larger subpleural nodule in the p osterior medial right lower lobe (which is seen on the previous CT abdomen) measures 21 x 17 mm axial ly image 41. This also appears elongated craniocaudally and bilobed measuring 32 mm in craniocaudal e xtent. AIRWAY: Central airways patent and unremarkable. MUSCULOSKELETAL: Bones appear somewhat demineralized and there is mild to moderate diffuse degenerat vicki change. At T2, there is heterogeneous lytic mass within the mid to anterior aspect of the T2 vert ebral body with some anterior paravertebral soft tissue extension of tumor into the posterior mediast inum coming close to the posterior aspect of the trachea. There is mild pathologic compression deform ity of T2 with minimal retropulsion into the canal. Smaller mixed lytic and sclerotic appearance in t he T3 vertebral body, most prominent laterally on the right, also consistent with metastasis. Vertebr al body T3 height is preserved. No discrete rib or sternal lesions can be seen. Mild degenerative levy nges of the shoulders. SOFT TISSUES: A circumscribed fat attenuation mass within the deep musculature of the right lateral c hest wall measures 4.8 x 1.9 cm, compatible with benign lipoma. UPPER ABDOMEN: Redemonstrated hepatic cirrhosis with multiple superimposed ill-defined hypodense lesi ons concerning for malignancy/metastasis, as well as a moderate to large volume of malignant abdomina l ascites with the appearance of small conglomerate mesenteric implants suggesting early omental caki ng anteriorly. Adrenals appear somewhat thickened without evidence of mass. Low-density gallstones ar e present. IMPRESSION: 1. Multiple bilateral pulmonary nodules, the largest in the right lower lobe measures 21 x 17 x 32 m m. This very likely represents pulmonary metastatic disease. 2. Multiple osseous spinal metastases, involving T2 and T3 with greater involvement at T2, accompani ed by mild pathologic compression fracture with slight retropulsion. 3. Redemonstrated hepatic cirrhosis with multiple superimposed ill-defined hypodense lesions concern ing for malignancy/metastasis, as well as a moderate to large volume of (likely malignant) abdominal ascites with the appearance of small conglomerate mesenteric implants suggesting early omental caking anteriorly. 4. Enlarged pulmonary trunk can be seen with pulmonary arterial hypertension. 5. Moderate cardiomegaly and coronary artery calcifications. 6. Small left pleural effusion.
[2023-03-08 16:10] LABS: Glucose,Whole Blood 188 mg/dL (70-110)
[2023-03-08 20:36] LABS: Glucose,Whole Blood 177 mg/dL (70-110)
[2023-03-09] MEDS: SODIUM CHLORIDE 0.9% 1,000 ML IV SCH ×3 (02:55→17:33)
[2023-03-09] MEDS: MORPHINE SULFATE 4 MG/ML SYRINGE IV PRN ×5 (03:36→21:46)
[2023-03-09 06:23] LABS: Glucose,Whole Blood 208 mg/dL (70-110)
[2023-03-09] MEDS: PANTOPRAZOLE 40 MG/10 ML VIAL IV SCH (08:11)
[2023-03-09 11:43] LABS: Glucose,Whole Blood 210 mg/dL (70-110)
[2023-03-09] MEDS ORDERED: DEXTROSE 50% SYRINGE 50 ML IVP PRN ×2 (11:53)
[2023-03-09] MEDS: INSULIN ASPART (NovoLOG) 100 UNIT/ML VIAL SQ SCH ×3 (12:16→21:47)
[2023-03-09 16:43] LABS: Glucose,Whole Blood 195 mg/dL (70-110)
[2023-03-09 20:56] LABS: Glucose,Whole Blood 190 mg/dL (70-110)
[2023-03-10] MEDS: SODIUM CHLORIDE 0.9% 1,000 ML IV SCH ×3 (01:56→17:29)
[2023-03-10] MEDS: MORPHINE SULFATE 4 MG/ML SYRINGE IV PRN ×5 (02:33→21:59)
[2023-03-10 05:37] LABS: Glucose,Whole Blood 182 mg/dL (70-110)
[2023-03-10] MEDS: INSULIN ASPART (NovoLOG) 100 UNIT/ML VIAL SQ SCH ×4 (07:17→22:02)
[2023-03-10] MEDS: PANTOPRAZOLE 40 MG/10 ML VIAL IV SCH (07:32)
[2023-03-10 11:20] LABS: Glucose,Whole Blood 199 mg/dL (70-110)
[2023-03-10] MEDS ORDERED: polyethylene glycoL 3350 17 GM POWD.PACK PO PRN (13:35)
--- NOTE | 2023-03-10 13:35 | P.PN ---
Subjective Progress Note Date: 03/10/23 Principal diagnosis: Ascites, elevated tumor markers In f/u pt to cont to vomit, green fluid that looks like it has flecks of solid material that is also green. She is only tolerating ice chips. No reports of vomiting blood. Last BM was about 3-4 days ago. We reviewed the results of her CT chest. She denies any Hx of stomach or pancreas surgery. Objective - Vital Signs Vital signs: Vital Signs Temp 97.8 F 03/10/23 12:18 Pulse 53 L 03/10/23 12:18 Resp 16 03/10/23 12:18 BP 129/77 03/10/23 12:18 Pulse Ox 100 03/10/23 12:18 FiO2 Intake & Output 03/09/23 03/10/23 03/10/23 18:59 06:59 18:59 Other: Voiding Method Toilet # Voids 4 - Constitutional Constitutional Comment(s): overweight but, distension is exaggerating her abd girth General appearance: Present: cooperative, no acute distress - EENT Eyes: Present: anicteric sclerae, EOMI ENT: Present: hearing grossly normal - Respiratory Respiratory: bilateral: CTA - Cardiovascular Details: radial pulse 2+, skin is warm and dry Rhythm: regular - Peripheral edema leg Peripheral Edema: bilateral: Trace - Gastrointestinal Gastrointestinal Comment(s): non-tender, unable to palpate any masses or organomegaly, BS distant, likely hypoactive General gastrointestinal: Present: distended, soft - Neurologic Neurologic: Present: CNII-XII intact - Musculoskeletal Musculoskeletal: Present: generalized weakness, strength equal bilaterally - Psychiatric Psychiatric: Present: A&O x's 3, appropriate affect, intact judgment & insight - Labs CBC & Chem 7: 03/04/23 02:43 03/08/23 05:34 Labs: Abnormal Lab Results - Last 24 Hours (Table) 03/09/23 03/09/23 03/10/23 Range/Units 16:42 20:55 05:36 POC Glucose (mg/dL) 195 H 190 H 182 H (70-110) mg/dL Hemoglobin A1c (<=6.0) % 03/10/23 03/10/23 Range/Units 05:48 11:17 POC Glucose (mg/dL) 199 H (70-110) mg/dL Hemoglobin A1c 9.5 H (<=6.0) % - Imaging and Cardiology CT scan - chest: report reviewed Assessment and Plan (1) Ascites Current Visit: Yes Status: Acute Priority: High Code(s): R18.8 - OTHER ASCITES SNOMED Code(s): 575166820 (2) Abdominal pain Current Visit: Yes Status: Acute Priority: High Code(s): R10.9 - UNSPECIFIED ABDOMINAL PAIN SNOMED Code(s): 47634143 (3) Nausea and vomiting Current Visit: Yes Status: Acute Priority: High Code(s): R11.2 - NAUSEA WITH VOMITING, UNSPECIFIED SNOMED Code(s): 59975200 Plan: Abnormal CT findings, elevated Ca19.9, Ca125 and CEA -Reviewed ascites, pulm nodules, vertebral bone lesions and liver lesions-all concerning for a malignant process -Plan is for paracentesis today. Reviewed that there is hope that evaluation/testing of ascites with provide a diagnosis -Made pt NPO except for ice chips as she is still vomiting. Hopefully post paracentesis she will have some relief of pressure in the abd and not feel as nauseated. Cont to monitor -Pt reports no BM for 3-4 days. She is on pain meds. Adding meds to promote BM Intractable N, V -adjust dose and freq of antiemetics -NPO except ice chips for now Reviewed plan with pt and RN.
--- NOTE | 2023-03-10 15:09 | US ---
EXAMINATION TYPE: US paracentesis abd w/image DATE OF EXAM: 03/10/2023 2:01 PM CLINICAL INDICATION:Female, 77 years old with history of ASCITES; COMPARISON: 03/03/2023. ATTENDING: Dr. Von Talavera PROCEDURE: Informed consent was obtained. The risks of the procedure were extensively explained incl uding risk of damage to surrounding bowel with perforation and need for additional procedures. Proced ure was performed in the ultrasound procedure suite. Ultrasound imaging of the abdomen demonstrate as citic fluid. An appropriate access site was localized to the right lower abdomen. Timeout was taken p er protocol. The skin was prepped and draped in the usual sterile fashion and then locally anesthetiz ed with 1% lidocaine. The peritoneal cavity was then accessed via a 5-Kazakh one-step needle/cathete r. Approximately 7320 cc of clear straw-colored fluid was obtained. Postprocedural imaging of the a bdomen demonstrate a minimal amount of abdominal fluid. Patient tolerated procedure well without immediate complication. Hemostasis at the procedural site w as obtained with a sterile bandage placed. The patient was monitored in the holding area following th e procedure and was subsequently discharged in stable condition. IMPRESSION: Ultrasound guided paracentesis, with approximately 7320 cc of clear straw-colored fluid drained. No i mmediate complications were evident.
[2023-03-10] MEDS: SENNOSIDES-DOCUSATE SODIUM 1 EACH TAB PO SCH ×2 (15:28→22:02)
[2023-03-10 16:08] LABS: Glucose,Whole Blood 183 mg/dL (70-110)
[2023-03-10] MEDS: ALBUMIN HUMAN 25% 50 ML in EMPTY BAG 1 BAG IVPB SCH ×4 (17:19→18:48)
[2023-03-10 20:32] LABS: Glucose,Whole Blood 157 mg/dL (70-110)
[2023-03-11] MEDS: SODIUM CHLORIDE 0.9% 1,000 ML IV SCH ×3 (01:24→14:11)
--- NOTE | 2023-03-11 01:47 | PN ---
PROGRESS NOTE DATE OF SERVICE: 03/10/2023 CHIEF COMPLAINT: Abdominal pain and intraabdominal neoplasm. HISTORY OF PRESENT ILLNESS: This lady's pain is getting worse. She is going for a paracentesis today. PHYSICAL EXAMINATION: CHEST: Clear. CARDIAC: Normal. ABDOMEN: Protuberant, soft. IMPRESSION: Likely malignancy of the pancreas. PLAN: 1. Increase analgesia. 2. Paracentesis. MMODL / IJN: [id number] /
--- NOTE | 2023-03-11 02:35 | PN ---
PROGRESS NOTE DATE OF SERVICE: 03/08/2023 CHIEF COMPLAINT: Abdominal pain. HISTORY OF PRESENT ILLNESS: This lady is having significant abdominal pain. She is now being considered for paracentesis because of elevated markers for possibly carcinoma of the pancreas and/or ovary. PHYSICAL EXAMINATION: CHEST: Clear. CARDIAC: Normal. ABDOMEN: Distended and she does have mild tenderness. IMPRESSION: 1. Abdominal pain. 2. Ascites. 3. Elevated blood sugars. 4. Congestive heart failure. PLAN: Await paracentesis. MMODL / IJN: [id number] /
[2023-03-11 04:34] LABS: Total Protein, Body Fluid 2820 mg/dL
[2023-03-11] MEDS: ONDANSETRON 4 MG/2 ML VIAL IVP PRN ×3 (04:48→17:33)
[2023-03-11 04:55] LABS: Appearance,BF Hazy (Clear)
[2023-03-11 05:57] LABS: Glucose,Whole Blood 196 mg/dL (70-110)
[2023-03-11] MEDS: MORPHINE SULFATE 4 MG/ML SYRINGE IV PRN (07:09)
[2023-03-11] MEDS: INSULIN ASPART (NovoLOG) 100 UNIT/ML VIAL SQ SCH ×4 (07:09→21:23)
[2023-03-11] MEDS: SENNOSIDES-DOCUSATE SODIUM 1 EACH TAB PO SCH ×2 (08:51→21:22)
[2023-03-11] MEDS: PANTOPRAZOLE 40 MG/10 ML VIAL IV SCH (08:51)
[2023-03-11 10:52] LABS: Glucose,Whole Blood 201 mg/dL (70-110)
[2023-03-11] MEDS ORDERED: MAGNESIUM HYDROXIDE 2,400 MG/30 ML CUP PO PRN (12:36)
[2023-03-11] MEDS ORDERED: MAGNESIUM HYDROXIDE 2,400 MG/30 ML CUP PO ONE (13:00)
--- NOTE | 2023-03-11 13:41 | P.PN ---
Subjective Progress Note Date: 03/11/23 S/p para with 7.3 L removed. Alumbin given post procedure. Reporting improvement in abdominal pain. Also reports n/v has improved but is still having mild vomiting. Emesis basin had small amt of bilious emesis. Last BM 4 days ago Objective - Vital Signs Vital signs: Vital Signs Temp 98.9 F 03/11/23 07:16 Pulse 76 03/11/23 07:16 Resp 19 03/11/23 07:16 BP 101/69 03/11/23 07:16 Pulse Ox 99 03/11/23 07:16 FiO2 Intake & Output 03/10/23 03/11/23 03/11/23 18:59 06:59 18:59 Other: Voiding Method Toilet # Voids 3 1 - Constitutional General appearance: Present: no acute distress - EENT Eyes: Present: anicteric sclerae, EOMI ENT: Present: hearing grossly normal - Respiratory Details: breathing is even and unlabored - Cardiovascular Details: skin warm and dry - Gastrointestinal Gastrointestinal Comment(s): distention General gastrointestinal: Absent: tenderness - Integumentary Integumentary: Absent: cyanotic - Musculoskeletal Musculoskeletal: Present: generalized weakness - Psychiatric Psychiatric: Present: A&O x's 3 - Labs CBC & Chem 7: 03/04/23 02:43 03/08/23 05:34 Labs: Abnormal Lab Results - Last 24 Hours (Table) 03/10/23 03/10/23 03/10/23 Range/Units 14:50 16:05 20:30 POC Glucose (mg/dL) 183 H 157 H (70-110) mg/dL Fluid Appearance Hazy A (Clear) 03/11/23 03/11/23 Range/Units 05:54 10:50 POC Glucose (mg/dL) 196 H 201 H (70-110) mg/dL Fluid Appearance (Clear) Microbiology - Last 24 Hours (Table) 03/10/23 14:50 Gram Stain - Preliminary Peritoneal Fluid Assessment and Plan (1) Hepatic lesion Current Visit: Yes Status: Acute Priority: High Code(s): K76.9 - LIVER DISEASE, UNSPECIFIED SNOMED Code(s): 771238574 (2) Nausea and vomiting Current Visit: Yes Status: Acute Priority: High Code(s): R11.2 - NAUSEA WITH VOMITING, UNSPECIFIED SNOMED Code(s): 51528657 (3) Abdominal pain Current Visit: Yes Status: Acute Priority: High Code(s): R10.9 - UNSPECIFIED ABDOMINAL PAIN SNOMED Code(s): 68441611 Plan: Abnormal CT findings, elevated Ca19.9, Ca125 and CEA -Reviewed ascites, pulm nodules, vertebral bone lesions and liver lesions-all concerning for a malignant process -PS/p paracentesis, 7.3 L removed, cytology and fluid analysis pending. Albumin given post procedure. Reviewed that there is hope that evaluation/testing of ascites with provide a diagnosis. -Reporting improvement in symptoms s/p para. -Await cytology. If inconclusive will need to obtain biopsy. Will continue to follow Intractable N, V -Adjust dose and freq of antiemetics. Compazine added -Reporting some improvement, but sx persisting -NPO except ice chips for now Constipation -Continues on senokot-s. Milk of magnesia ordered
[2023-03-11 16:48] LABS: Glucose,Whole Blood 178 mg/dL (70-110)
[2023-03-11] MEDS: MORPHINE SULFATE 10 MG/ML 1ML VIAL IV PRN (17:33)
[2023-03-11 20:15] LABS: Glucose,Whole Blood 202 mg/dL (70-110)
--- NOTE | 2023-03-11 22:26 | PN ---
PROGRESS NOTE DATE OF SERVICE: 03/11/2023 CHIEF COMPLAINT: Abdominal pain and intraabdominal neoplasm. HISTORY OF PRESENT ILLNESS: This lady is still having some abdominal discomfort, but it has improved since she has had a paracentesis and her morphine dose increased. She is slightly nauseated, but thirsty and we will advance her diet. PHYSICAL EXAMINATION: CHEST: Clear. CARDIAC: Normal. ABDOMEN: Less protuberant. IMPRESSION: 1. Malignant ascites. 2. Congestive heart failure. 3. Diabetes. PLAN: Start clear liquids and await cytology on paracentesis. MMODL / IJN: [id number] /
[2023-03-12] MEDS: SODIUM CHLORIDE 0.9% 1,000 ML IV SCH ×3 (00:30→12:43)
--- NOTE | 2023-03-12 01:38 | PN ---
PROGRESS NOTE DATE OF SERVICE: 03/09/2023 CHIEF COMPLAINT: Abdominal pain. HISTORY OF PRESENT ILLNESS: This lady is having significant amount of abdominal discomfort and she is not eating well. It is likely that she has an intraabdominal neoplasm. Paracentesis is planned. PHYSICAL EXAMINATION: CHEST: Clear. CARDIAC: Unchanged with atrial fibrillation. ABDOMEN: Distended and tender. IMPRESSION: Probable malignant ascites. PLAN: Await for paracentesis. MMODL / IJN: [id number] /
[2023-03-12] MEDS: ONDANSETRON 4 MG/2 ML VIAL IVP PRN ×2 (02:56→16:57)
[2023-03-12] MEDS: MORPHINE SULFATE 10 MG/ML 1ML VIAL IV PRN ×3 (03:57→19:29)
[2023-03-12 05:53] LABS: Glucose,Whole Blood 195 mg/dL (70-110)
[2023-03-12] MEDS: INSULIN ASPART (NovoLOG) 100 UNIT/ML VIAL SQ SCH ×5 (06:46→21:06)
[2023-03-12] MEDS: SENNOSIDES-DOCUSATE SODIUM 1 EACH TAB PO SCH ×2 (08:40→21:07)
[2023-03-12] MEDS: PANTOPRAZOLE 40 MG/10 ML VIAL IV SCH (08:40)
[2023-03-12] MEDS: PROCHLORPERAZINE INJ 10 MG/2 ML VIAL IVP PRN ×3 (08:42→21:07)
[2023-03-12 11:15] LABS: Glucose,Whole Blood 194 mg/dL (70-110)
[2023-03-12 16:30] LABS: Glucose,Whole Blood 176 mg/dL (70-110)
[2023-03-12 19:40] LABS: Glucose,Whole Blood 199 mg/dL (70-110)
[2023-03-13] MEDS: ONDANSETRON 4 MG/2 ML VIAL IVP PRN ×3 (00:39→16:00)
[2023-03-13] MEDS: PROCHLORPERAZINE INJ 10 MG/2 ML VIAL IVP PRN ×2 (03:31→21:04)
[2023-03-13 06:13] LABS: Glucose,Whole Blood 229 mg/dL (70-110)
[2023-03-13] MEDS: SODIUM CHLORIDE 0.9% 1,000 ML IV SCH ×3 (06:28→13:36)
[2023-03-13] MEDS: MORPHINE SULFATE 10 MG/ML 1ML VIAL IV PRN ×2 (06:29→22:18)
[2023-03-13] MEDS: INSULIN ASPART (NovoLOG) 100 UNIT/ML VIAL SQ SCH ×4 (06:30→22:18)
[2023-03-13] MEDS: SENNOSIDES-DOCUSATE SODIUM 1 EACH TAB PO SCH ×2 (08:01→22:18)
[2023-03-13] MEDS: PANTOPRAZOLE 40 MG/10 ML VIAL IV SCH (08:02)
[2023-03-13 11:17] LABS: Glucose,Whole Blood 236 mg/dL (70-110)
[2023-03-13 12:48] LABS: HCT 50.2 % (34.0-46.0); HGB 15.6 gm/dL (11.4-16.0); Hypochromasia Slight; MCH 30.9 pg (25.0-35.0); MCV 99.5 fL (80.0-100.0); Platelet Count 335 k/uL (150-450); RBC 5.05 m/uL (3.80-5.40); RDW 13.1 % (11.5-15.5); WBC 8.6 k/uL (3.8-10.6)
[2023-03-13 12:59] LABS: ALT 21 U/L (4-34); AST 27 U/L (14-36); African American GFR (CKD) 42 (>60 ml/min/1.73 sqM); Albumin 2.4 g/dL (3.5-5.0); Albumin/Globulin Ratio 0.9; Alkaline Phosphatase 227 U/L (38-126); Anion Gap 15 mmol/L; Blood Urea Nitrogen 36 mg/dL (7-17); Calcium 10.2 mg/dL (8.4-10.2); Carbon Dioxide 13 mmol/L (22-30); Chloride 104 mmol/L (98-107); Globulin 2.8 g/dL; Glucose 243 mg/dL (74-99); Non-African American GFR(CKD) 37 (>60 ml/min/1.73 sqM); Potassium 4.9 mmol/L (3.5-5.1); Sodium 132 mmol/L (137-145); Total Bilirubin 1.1 mg/dL (0.2-1.3); Total Protein 5.2 g/dL (6.3-8.2)
[2023-03-13 13:18] LABS: Glucose,Whole Blood 226 mg/dL (70-110)
[2023-03-13 14:09] LABS: Band Neutrophils % 3 %; Lymphocytes # (M) 1.03 k/uL (1.0-4.8); Monocytes # (M) 0.95 k/uL (0-1.0); Neutrophils % (M) 74 %; Nucleated Red Blood Cells 0 /100 WBC (0-0); Total Cells Counted 100
--- NOTE | 2023-03-13 14:34 | P.PN ---
Subjective Progress Note Date: 03/13/23 S/p para with 7.3 L removed. [place] given post procedure, cytology pending. Ascitic fuild culture negative. At todays visit, pt is reporting worsening abdominal pain and persisting n/v. She is more somnolent today, but arousable to verbal stimuli. Answering questions appropriately, A&Ox3. BG 236. VSS Objective - Vital Signs Vital signs: Vital Signs Temp 97.9 F 03/13/23 13:15 Pulse 94 03/13/23 13:15 Resp 22 03/13/23 13:15 BP 116/81 03/13/23 13:15 Pulse Ox 99 03/13/23 13:15 FiO2 Intake & Output 03/12/23 03/13/23 03/13/23 18:59 06:59 18:59 Intake Total 1560 Balance 1560 Weight 104.326 kg Intake: Intake, IV Titration 1560 Amount Sodium Chloride 0.9% 1, 1560 000 ml @ 130 mls/hr IV . Q7H42M [facility] Rx#:[id number] Other: Voiding Method Toilet Toilet # Voids 4 - Constitutional General appearance: Present: mild distress - EENT ENT: Present: hearing grossly normal - Respiratory Details: breathing mildly labored - Cardiovascular Details: skin warm and dry - Gastrointestinal General gastrointestinal: Present: distended, tenderness Localized gastrointestinal: tender: diffuse - Integumentary Integumentary: Absent: cyanotic - Musculoskeletal Musculoskeletal: Present: generalized weakness - Psychiatric Psychiatric Comment(s): somnolent Psychiatric: Present: A&O x's 3 - Labs CBC & Chem 7: 03/13/23 12:33 03/13/23 12:33 Labs: Abnormal Lab Results - Last 24 Hours (Table) 03/12/23 03/12/23 03/13/23 Range/Units 16:29 19:39 06:12 Hct (34.0-46.0) % Sodium (137-145) mmol/L Carbon Dioxide (22-30) mmol/L BUN (7-17) mg/dL Creatinine (0.52-1.04) mg/dL Glucose (74-99) mg/dL POC Glucose (mg/dL) 176 H 199 H 229 H (70-110) mg/dL Alkaline Phosphatase (38-126) U/L Total Protein (6.3-8.2) g/dL Albumin (3.5-5.0) g/dL 03/13/23 03/13/23 03/13/23 Range/Units 11:15 12:33 12:33 Hct 50.2 H (34.0-46.0) % Sodium 132 L (137-145) mmol/L Carbon Dioxide 13 L (22-30) mmol/L BUN 36 H (7-17) mg/dL Creatinine 1.41 H (0.52-1.04) mg/dL Glucose 243 H (74-99) mg/dL POC Glucose (mg/dL) 236 H (70-110) mg/dL Alkaline Phosphatase 227 H (38-126) U/L Total Protein 5.2 L (6.3-8.2) g/dL Albumin 2.4 L (3.5-5.0) g/dL 03/13/23 Range/Units 13:17 Hct (34.0-46.0) % Sodium (137-145) mmol/L Carbon Dioxide (22-30) mmol/L BUN (7-17) mg/dL Creatinine (0.52-1.04) mg/dL Glucose (74-99) mg/dL POC Glucose (mg/dL) 226 H (70-110) mg/dL Alkaline Phosphatase (38-126) U/L Total Protein (6.3-8.2) g/dL Albumin (3.5-5.0) g/dL Microbiology - Last 24 Hours (Table) 03/10/23 14:50 Anaerobic Culture - Preliminary Peritoneal Fluid 03/10/23 14:50 Gram Stain - Preliminary Peritoneal Fluid Body Fluid Culture - Preliminary Assessment and Plan (1) Hepatic lesion Current Visit: Yes Status: Acute Priority: High Code(s): K76.9 - LIVER DISEASE, UNSPECIFIED SNOMED Code(s): 348653376 (2) Nausea and vomiting Current Visit: Yes Status: Acute Priority: High Code(s): R11.2 - NAUSEA WITH VOMITING, UNSPECIFIED SNOMED Code(s): 28444612 (3) Abdominal pain Current Visit: Yes Status: Acute Priority: High Code(s): R10.9 - UNSPECIFIED ABDOMINAL PAIN SNOMED Code(s): 25930651 Plan: Abnormal CT findings, elevated Ca19.9, Ca125 and CEA -Reviewed ascites, pulm nodules, vertebral bone lesions and liver lesions-all concerning for a malignant process -PS/p paracentesis, 7.3 L removed, cytology pending. Fluid culture negative thus far. Reviewed that there is hope that evaluation/testing of ascites with provide a diagnosis. If inconclusive will have to obtain biopsy -Reported improvement in symptoms s/p para. However at todays visit patient is complaining of increased abdominal pain and nausea vomiting. She is also more somnolent, but is arousable to verbal stimuli and is A&Ox3. CBC, CMP, and ammonia obtained. Ammonia less than 9. CBC revealed WBC 8.6, hemoglobin 15.6, platelets 335,000. AST, ALT, bilirubin within normal limits. ALP is elevated at 287. Glucose 243. Creatinine elevated at 1.4. TLS labs ordered. Continues on continuos hydration. Acute abdominal series ordered. Spoke with RN and instructed to call attending physician to notify them of patient's status, and if there is any worsening in status/vitals to page A team Intractable N, V -Adjust dose and freq of antiemetics. Compazine added -Symptoms persisting -Clear liquid diet. Increase oral intake as tolerated Constipation -Continues on senokot-s. Milk of magnesia and miralax prn
--- NOTE | 2023-03-13 14:44 | XR ---
EXAMINATION TYPE: XR abdomen acute w cxr DATE OF EXAM: 03/13/2023 2:22 PM CLINICAL INDICATION:Female, 77 years old with history of pain; COMPARISON: 03/03/2023. TECHNIQUE: Two radiographic views of the abdomen (upright and supine) and a frontal chest radiograph were obtained. FINDINGS CHEST: Patient is rotated. Lungs/Pleura: Blunting of the left costophrenic angle. Increased lucency in the lung apices. No evide nce for pneumothorax. Mediastinum: The heart is enlarged for size. Vasculature: Normal. Heart: Normal in size. Musculoskeletal: The osseous structures are intact. Other findings: No significant. FINDINGS ABDOMEN: Bowel gas pattern: Dilation of bowel in the abdomen. Normal without dilated loops of small or large b owel. Fecal material and gas are demonstrated throughout the colon and rectum. Position of bowel compatible with known ascites. Abnormal calcifications: None. Musculoskeletal: Normal. Other: None. IMPRESSION: 1. Rotated exam with suspected small left pleural effusion. 2. Evidence of ascites which is compatible with 03/03/2023 CT. 3. Cardiomegaly. 4. COPD changes.
[2023-03-13 14:48] LABS: Uric Acid 9.1 mg/dL (3.7-7.4)
[2023-03-13 16:37] LABS: Glucose,Whole Blood 233 mg/dL (70-110)
[2023-03-13 20:08] LABS: Glucose,Whole Blood 199 mg/dL (70-110)
[2023-03-14 05:56] LABS: Glucose,Whole Blood 185 mg/dL (70-110)
[2023-03-14] MEDS: SODIUM CHLORIDE 0.9% 1,000 ML IV SCH ×3 (06:10→15:32)
--- NOTE | 2023-03-14 07:17 | PN ---
PROGRESS NOTE DATE OF SERVICE: 03/12/2023 CHIEF COMPLAINT: Ascites, abdominal pain, and intraabdominal neoplasm. HISTORY OF PRESENT ILLNESS: This lady is about the same. Her morphine was increased, and she is a little bit more comfortable. She is still having pain, and she is not eating. We are awaiting the histology on the ascitic fluid. PHYSICAL EXAMINATION: VITAL SIGNS: Normal. CHEST: Clear. CARDIAC: Exam demonstrates atrial fibrillation. ABDOMEN: Distended and slightly tender. Bowel sounds are diminished. IMPRESSION: 1. Intraabdominal neoplasia. 2. Congestive heart failure. 3. Diabetes. 4. Obesity. PLAN: Continue to try to keep the patient comfortable while we await the histology on the ascitic fluid. MMODL / IJN: [id number] /
[2023-03-14] MEDS: INSULIN ASPART (NovoLOG) 100 UNIT/ML VIAL SQ SCH ×2 (07:22→12:00)
--- NOTE | 2023-03-14 07:26 | PN ---
PROGRESS NOTE DATE OF SERVICE: 03/13/2023 CHIEF COMPLAINT: Increased abdominal pain. HISTORY OF PRESENT ILLNESS: This lady is not doing well. Her pain is getting worse. Her morphine was increased. We are awaiting results of her paracentesis. She is becoming a little bit more lethargic. She is a DNR. PHYSICAL EXAMINATION: CHEST: Clear. CARDIAC: Normal. ABDOMEN: Protuberant and bowel sounds are diminished. IMPRESSION: 1. Intra-abdominal neoplasm. 2. Ascites. 3. Congestive heart failure. 4. Diabetes. PLAN: 1. Await for results of thoracentesis. 2. She is being followed by Oncology, who has ordered several studies for today. We will make an effort to contact the family members. Prognosis is poor. MMODL / IJN: [id number] /
[2023-03-14] MEDS: SENNOSIDES-DOCUSATE SODIUM 1 EACH TAB PO SCH (07:45)
[2023-03-14] MEDS: PANTOPRAZOLE 40 MG/10 ML VIAL IV SCH (07:50)
[2023-03-14 08:02] VITALS: PULSE 67; TEMP 97.6
[2023-03-14] MEDS: MORPHINE SULFATE 10 MG/ML 1ML VIAL IV PRN (10:48)
[2023-03-14 12:42] LABS: Glucose,Whole Blood 201 mg/dL (70-110)
[2023-03-14] MEDS ORDERED: MORPHINE SULFATE IR 15 MG TABLET PO PRN (13:09)
[2023-03-14] MEDS ORDERED: LORazepam 1 MG TAB PO PRN (13:10)
[2023-03-14] MEDS ORDERED: LORazepam 1 MG TAB PO STA (13:10)
[2023-03-14] MEDS ORDERED: LORazepam 2 MG/ML INJ IV PRN (13:13)
[2023-03-14] MEDS ORDERED: MORPHINE SULFATE 10 MG/ML 1ML VIAL IV PRN (13:25)
[2023-03-14 13:36] VITALS: BP 88/59; RESP 17
[2023-03-14] MEDS ORDERED: MORPHINE CONC SOLN 10mg/0.5mL ORAL SYRG PO PRN (13:50)
== END 2023-03-14 16:15 | disposition hospice, inpatient (51) | DRG 436 ==
LOC: EC 19:55 → 6NMEDSUR 23:46 → OBSVTOIN 23:47 → 6NMEDSUR 03-04 15:32 → 4SSUR 03-04 17:09
PROVIDERS: ADMIT Family Medicine; ATTEND Family Medicine
PROC: 0W9G3ZX Drainage of Peritoneal Cavity, Percutaneous Approach, Diagnostic (ICD-10-PCS; principal; 2023-03-10)
DX: C25.9 Malignant neoplasm of pancreas, unspecified (principal); R18.0 Malignant ascites; E83.42 Hypomagnesemia; E87.6 Hypokalemia; E66.9 Obesity, unspecified; E78.5 Hyperlipidemia, unspecified; I11.0 Hypertensive heart disease with heart failure; I25.2 Old myocardial infarction; I48.91 Unspecified atrial fibrillation; E11.65 Type 2 diabetes mellitus with hyperglycemia; K74.60 Unspecified cirrhosis of liver; I50.9 Heart failure, unspecified; J44.9 Chronic obstructive pulmonary disease, unspecified; G89.29 Other chronic pain; Z66 Do not resuscitate; Z79.899 Other long term (current) drug therapy; Z79.4 Long term (current) use of insulin; Z79.01 Long term (current) use of anticoagulants; Z79.891 Long term (current) use of opiate analgesic; Z88.8 Allergy status to other drugs, medicaments and biological substances; Z90.710 Acquired absence of both cervix and uterus; Z95.5 Presence of coronary angioplasty implant and graft
CPT/HCPCS: 36415; 49083; 71260; 74022; 74177; 80048; 80053; 82042; 82105; 82140; 82150; 82378; 83036; 83605; 83690; 83735; 84100; 84157; 84484; 84550; 85025; 85610; 86301; 86304; 87070; 87075; 87205; 88108; 88305; 88341; 88342; 89050; 93005; 96361; 96374; 96375; 96376; 99285

== ENCOUNTER 2023-03-14 15:26 | Inpatient (IN) | payer MEDICAID ==
[2023-03-14] MEDS ORDERED: ACETAMINOPHEN SUPPOSITORY 650 MG SUPP RECTAL PRN (15:47)
[2023-03-14] MEDS ORDERED: LORazepam 1 MG TAB PO PRN (15:47)
[2023-03-14] MEDS ORDERED: LORazepam 2 MG/ML INJ IV PRN (15:47)
[2023-03-14] MEDS ORDERED: ONDANSETRON 4 MG/2 ML VIAL IVP PRN (15:47)
[2023-03-14] MEDS ORDERED: METOCLOPRAMIDE 10 MG TAB PO PRN (15:47)
[2023-03-14] MEDS ORDERED: GLYCOPYRROLATE 0.2 MG/ML 2 ML VIAL IVP PRN (15:47)
[2023-03-14] MEDS ORDERED: DRY MOUTH SPRAY 44.3 SPRAY/44.3 ML SPRAY MUCOUS MEM PRN (15:47)
[2023-03-14] MEDS ORDERED: MORPHINE CONC SOLN 10mg/0.5mL ORAL SYRG SL PRN (16:02)
[2023-03-14] MEDS: MORPHINE SULFATE (100 MG/2 ML) 100 MG in SODIUM CHLORIDE 0.9% 100 ML IV SCH (17:57)
[2023-03-15 09:04] VITALS: RESP 12; TEMP 97.6
[2023-03-15 20:49] VITALS: BP 53/45; PULSE 83
[2023-03-16] MEDS: MORPHINE SULFATE (100 MG/2 ML) 100 MG in SODIUM CHLORIDE 0.9% 100 ML IV SCH (02:11)
--- NOTE | 2023-03-16 03:43 | PN ---
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 HISTORY OF PRESENT ILLNESS: This lady has been seen by Hospice. She is sedated. There has been no vomiting or agitation and no obvious indications of pain. PHYSICAL EXAMINATION: VITAL SIGNS: Blood pressure is 68/40. CHEST: She is breathing somewhat erratically and irregularly. IMPRESSION: 1. Intraabdominal neoplasm, terminal. 2. Congestive heart failure. 3. Diabetes. PLAN: Half of the family is present and are all well appraised of the situation and the outcome. MMODL / IJN: [id number] /
--- NOTE | 2023-03-17 10:40 | DS ---
DISCHARGE SUMMARY CHIEF COMPLAINT: Intractable nausea and vomiting. HISTORY OF PRESENT ILLNESS AND PHYSICAL EXAMINATION: Details of this lady's history and physical can be found in the initial workup. LABORATORY STUDIES: While she is in a hospital, she had laboratory studies, details of which can be found in the laboratory section of her chart. COURSE IN THE HOSPITAL: After admission, she was placed on bedrest, started on intravenous fluids. She continued to have vague abdominal pain with anorexia, nausea and vomiting. The etiology could not be determined initially. Her tumor antibody studies were ordered and her CA-19-9 and CA-125 came back very high. She was then referred to Oncology and she underwent interventional paracentesis for about 7000 mL of fluid. This was sent out for studies which were still not back at that time of this dictation of this dictation. It was clear, however, that she had an intraabdominal malignancy. She and the family were informed of this. She slowly begins to get worse and become more lethargic. The patient discussed hospice with the family and her caregivers and there was agreement that she would be referred to hospice. She continued to deteriorate and she on the morning of . FINAL DIAGNOSES: 1. 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 2. Ascites. 3. Congestive heart failure. 4. Atrial fibrillation. 5. Type 2 diabetes mellitus. OPERATION: Paracentesis. CONSULTATION: Oncology. RADHA / TOYA: [id number] /
== END 2023-03-16 09:17 | disposition expired | DRG 951 ==
LOC: 4SSUR 17:22
PROVIDERS: ADMIT Family Medicine; ATTEND Family Medicine
DX: Z51.5 Encounter for palliative care (principal); R18.8 Other ascites; Z66 Do not resuscitate; I50.9 Heart failure, unspecified; I48.91 Unspecified atrial fibrillation; E11.9 Type 2 diabetes mellitus without complications; C76.2 Malignant neoplasm of abdomen; R11.2 Nausea with vomiting, unspecified; R63.0 Anorexia; Z68.39 Body mass index [BMI] 39.0-39.9, adult